=== PATIENT | female | born 1930 | race Asian ===

== ENCOUNTER 2017-02-09 16:58 | Emergency (ER) ==
[2017-02-09 17:14] VITALS: TEMP 97.6; BMI 28.3
[2017-02-09 17:46] LABS: BASOPHILS # (AUTO) 0.1 K/uL (0-0.2); BASOPHILS % (AUTO) 0.5 % (0.0-3.0); EOSINOPHILS # (AUTO) 0.2 K/ul (0.0-0.7); EOSINOPHILS % (AUTO) 1.9 % (0.0-7.0); HEMATOCRIT 36.8 % (37.0-47.0); HEMOGLOBIN 12.1 g/dl (12.0-16.0); IMMATURE GRANULOCYTE % (AUTO) 0.8 % (0.0-5.0); LYMPHOCYTES # (AUTO) 1.4 K/uL (0.60-3.4); LYMPHOCYTES % (AUTO) 11.9 (10.0-50.0); MEAN CORPUSCULAR HEMOGLOBIN 28.3 pg (27.0-31.0); MEAN CORPUSCULAR HGB CONC 32.9 (31.8-35.4); MEAN CORPUSCULAR VOLUME 86.2 fl (81.0-99.0); MONOCYTES # (AUTO) 0.8 K/uL (0.4-2.0); MONOCYTES % (AUTO) 6.7 (0-10); NEUTROPHILS # (AUTO) 9.5 K/ul (2.0-6.9); NEUTROPHILS % (AUTO) 78.2; PLATELET COUNT 276 10^3/uL (140-440); RED BLOOD COUNT 4.27 10^6/ul (4.20-5.40); WHITE BLOOD COUNT 12.11 K/ul (4.6-10.2)
[2017-02-09 18:05] LABS: ALBUMIN 3.3 g/dL (3.4-5.0); ALBUMIN/GLOBULIN RATIO 0.92; ANION GAP 15.4; BILIRUBIN,TOTAL 0.29 mg/dL (0.00-1.20); BUN/CREATININE RATIO 17.94; CALCIUM 9.1 mg/dL (8.2-10.2); CREATININE 1.17 mg/dL (0.60-1.30); POTASSIUM 4.4 mmol/L (3.5-5.10); TOTAL PROTEIN 6.9 g/dL (5.8-8.1)
[2017-02-09] MEDS ORDERED: SODIUM CHLORIDE 500 ML IV ONE (18:16)
[2017-02-09] MEDS ORDERED: MORPHINE 2 MG/ML SYRINGE IM STA (18:16)
--- NOTE | 2017-02-09 18:17 | CT ---
EXAM: CT head without contrast HISTORY: Trauma COMPARISON: CT head 09/17/2009 TECHNIQUE: Serial axial images of the brain were obtained from the skull base to the vertex without IV contrast. FINDINGS: The ventricles, cisterns and sulci demonstrate moderate generalized volume loss. The carranza- white matter junction is maintained. There is mild low attenuation in the periventricular white megan er.No midline shift or mass is identified. There is no abnormal intra or extra-axial fluid collectio n. The paranasal sinuses and mastoid air cells are clear. The osseous calvarium is intact. There is right periorbital hematoma. The orbital globes retrobulbar structures are normal. IMPRESSION: 1. Right periorbital hematoma with no intracranial abnormality or hemorrhage. 2. 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
--- NOTE | 2017-02-09 18:22 | CT ---
EXAM: CT cervical spine without contrast. HISTORY: Fall COMPARISON: CT cervical spine 09/17/2009 TECHNIQUE: Serial axial images of the cervical spine were obtained from the skull base through the l pj apices without contrast. These were viewed in multiple planes. FINDINGS: Vertebral bodies demonstrate no compression fracture or subluxation. There is narrowing a nd osteophyte formation from C4 through C7. There is scattered facet arthropathy. There is degenera tive disease of the articulation of the odontoid process with C1. There is neural foraminal narrowing bilaterally from C5-C6 through C6-C7 which is moderate and most pronounced on the left. The soft tis sues are otherwise unremarkable. IMPRESSION: 1. No acute compression fracture or subluxation of the cervical spine. 2. 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
--- NOTE | 2017-02-09 18:26 | ED.PDOC ---
General Stated Complaint: FACIAL/ CHEST INJURY Time Seen by Physician: 17:00 (FALL IN THE BATHROOM STRUCK THE CHEST , HAS NECK AND CHEST PAIN) Mode of Arrival: Stretcher Information Source: Patient, Family Exam Limitations: No limitations Referred to ED by: Other (MINIMAL DRY BLOOD AROUND THE UPPER LIP IS NOTED. PT FULLY ALERT ) Nursing and Triage Documentation Reviewed and Agree: Yes (ARRIVED IN C COLOR AND REMAINED ON IT THROUGH OUT PRESENTATION) <SERGIO ACOSTA - Last Filed: 02/09/17 18:37> <JOSÉ MANUEL LINCOLN - Last Filed: 02/09/17 21:43> ED Provider: Dr. JOSÉ MANUEL LINCOLN Chief Complaint: Facial Injury Primary Care Provider: KATHRIN MONTOYA Trauma/Injury Complaint Exam - Trauma Complaint/Exam Location of Pain or Injury: Reports: Face, Neck, Chest, Other (UPPER BACK BUT CATEGORICALY REJECTED LOWER BACK PAIN) Onset/Duration: 40 MIN Symptoms Are: Still present Timing of Treatment: Immediate Initial Severity: Moderate Current Severity: Moderate Character: Reports: Aching Aggravating: Reports: Movement Alleviating: Reports: Rest Associated Signs and Symptoms: Denies: LOC, Confusion, Memory loss, Lethargy, Vomiting, Bleeding, Bruising, Swelling, Extremity disuse, Painful respiration, Hoarseness, Dysphagia, Hemoptysis, Significant blood loss Last Meal: 4 HOURS AGO Penetrating Injury Risk Factors: Reports: None EMS Interventions: Present: C-spine immobilization. Absent: Backboard applied Related Surgical History: Reports: None Nexus Low Risk Criteria: No evidence of intoxicat., No Altered LOC, No focal neuro deficit Immobilization Removed Post Exam: No (SHE REMAINED ON C COLOR THROUGH OUT PRESENATION NO RESP ISSUES ) Glascow Coma Scale (see protocol): 15 Trauma Findings: Present: Neck tenderness, Neck spasm. Absent: [place] eyes, Hemotympanum, Nasal deformity, Dental tenderness, Dental injury, Dental malocclusion, SubQ Air, Crepitus, Airway obstructed, Trachea displaced, Labored respirations, Decreased breath sounds, Muffled heart sounds, Weak pulses, Absent pulses, Abdominal distention, Pelvic tenderness, Pelvic instability Skin Findings: Present: Normal findings Differential Diagnoses: Fracture, Sprain, Strain <SERGIO ACOSTA - Last Filed: 02/09/17 18:37> Review of Systems - Review Of Systems Constitutional: Reports: Malaise, Weakness Eyes: Reports: No symptoms Ears, Nose, Mouth, Throat: Reports: No symptoms Respiratory: Reports: No symptoms Cardiac: Reports: No symptoms GI: Reports: No symptoms : Reports: No symptoms Musculoskeletal: Reports: Joint pain, Joint swelling Skin: Reports: No symptoms Neurological: Reports: No symptoms Endocrine: Reports: No symptoms Hematologic/Lymphatic: Reports: No symptoms All Other Systems: Reviewed and Negative <JOSÉ MANUEL LINCOLN - Last Filed: 02/09/17 21:43> Past Medical History - Past Medical History Previously Healthy: Yes Endocrine: Reports: DM 2, Dyslipidemia Cardiovascular: Reports: None Respiratory: Reports: None Hematological: Reports: None Gastrointestinal: Reports: GERD Genitourinary: Reports: None Neuro/Psych: Reports: None Musculoskeletal: Reports: None Cancer: Reports: None Last Menstrual Period: unknown - Surgical History General Surgical History: Reports: None - Family History Family History: Reports: None - Social History Smoking Status: Never smoker Hx Substance Use: No Alcohol Screening: None <SERGIO ACOSTA - Last Filed: 02/09/17 18:37> Physical Exam - Physical Exam Appearance: Ill-appearing (face is swollen ) Pain Distress: Moderate Eyes: EOMI, Conjunctiva clear ENT: Ears normal, Nose normal, Oropharynx normal Respiratory: Airway patent, Breath sounds clear, Breath sounds diminished, Respirations nonlabored Cardiovascular: RRR (sternal tenderness, ecchymosis), No rub, No murmur, Tachycardia GI/: Soft, Nontender, No masses, Bowel sounds normal, No Organomegaly Musculoskeletal: Normal strength (rt wrist ecchymosis), ROM intact, No edema, No calf tenderness Skin: Warm, Dry, Normal color Neurological: Sensation intact, Motor intact, Reflexes intact, Cranial nerves intact, Alert, Oriented Psychiatric: Affect appropriate, Mood appropriate <JOSÉ MANUEL LINCOLN - Last Filed: 02/09/17 21:43> Interpretation - Radiology Interpretation Radiology Interpretation By: Radiologist <SERGIO ACOSTA - Last Filed: 02/09/17 18:37> Physician Notification - Case Discussed Physician Notified: SALAZAR Time of Notification: 19:00 (DATA PENDING) <SERGIO ACOSTA - Last Filed: 02/09/17 18:37> - Case Discussed Time of Notification: 21:42 (Dr Kellee Ramos.) <JOSÉ MANUEL LINCOLN - Last Filed: 02/09/17 21:43> Critical Care Note - Critical Care Note Total Time (mins): 0 <SERGIO ACOSTA - Last Filed: 02/09/17 18:37> Course - Course Hematology/Chemistry: 02/09/17 17:40 02/09/17 17:40 <SERGIO ACOSTA - Last Filed: 02/09/17 18:37> - Course Hematology/Chemistry: 02/09/17 17:40 02/09/17 17:40 <JOSÉ MANUEL LINCOLN - Last Filed: 02/09/17 21:43> - Course Orders, Labs, Meds: Lab Review 02/09/17 02/09/17 17:40 17:40 WBC 12.11 H RBC 4.27 Hgb 12.1 Hct 36.8 L MCV 86.2 MCH 28.3 MCHC 32.9 RDW Coeff of Leann 13.2 Plt Count 276 Immature Gran % (Auto) 0.8 Neut % (Auto) 78.2 Lymph % (Auto) 11.9 [place] % (Auto) 6.7 Eos % (Auto) 1.9 Baso % (Auto) 0.5 Immature Gran # (Auto) 0.1 Neut # 9.5 H Lymph # 1.4 [place] # 0.8 Eos # 0.2 Baso # 0.1 Sodium 137 Potassium 4.4 Chloride 102 Carbon Dioxide 24 Anion Gap 15.4 BUN 21 H Creatinine 1.17 Estimated GFR (MDRD) 44.00 BUN/Creatinine Ratio 17.94 Glucose 435 H Calcium 9.1 Total Bilirubin 0.29 AST 33 ALT 34 Alkaline Phosphatase 127 Total Protein 6.9 Albumin 3.3 L Globulin 3.6 Albumin/Globulin Ratio 0.92 Orders Category Date Time Status NPO REMINDER: IMAGING ONCE CARE 02/09/17 18:40 Completed ED IV/MEDIPORT/POWERPORT .ONCE EMERGENCY 02/09/17 18:39 Active CBC W/ AUTO DIFF Stat LAB 02/09/17 17:40 Completed COMPREHENSIVE METABOLIC PANEL Stat LAB 02/09/17 17:40 Completed 0.9 % Sodium Chloride [Saline Flush] MEDS 02/09/17 18:39 Ordered 1 syr IVF PRN PRN Morphine Sulfate [Morphine 2 mg/ml Syringe] MEDS 02/09/17 18:16 Discontinued 4 mg IM ONCE STA Sodium Chloride 0.9% [Sodium Chloride] 500 ml MEDS 02/09/17 18:40 Active IV 125 mls/hr CT CERVICAL SPINE W/O CONTRAST Stat RADS 02/09/17 17:[address] CHEST W/CONTRAST Stat RADS 02/09/17 18:[address] CHEST W/O CONTRAST Stat RADS 02/09/17 17:[address] HEAD W/O CONTRAST Stat RADS 02/09/17 17:[address] MAXILLOFACIAL W/O CONTRAST Stat RADS 02/09/17 17:[address] THORACIC SPINE W/O CONTRAST Stat RADS 02/09/17 17:34 Completed Medications Generic Name Dose Route Start Last Admin Trade Name Freq PRN Reason Stop Dose Admin Sodium Chloride 500 mls @ 125 mls/hr 02/09/17 18:40 02/09/17 18:59 Sodium Chloride IV 02/09/17 22:39 125 mls/hr .Q4H STA Administration Sodium Chloride 1 syr 02/09/17 18:39 02/09/17 18:58 Saline Flush IVF 1 syr PRN PRN Administration To flush IV Discontinued Medications Generic Name Dose Route Start Last Admin Trade Name Freq PRN Reason Stop Dose Admin Morphine Sulfate 4 mg 02/09/17 18:16 02/09/17 18:22 Morphine 2 Mg/Ml Syringe IM 02/09/17 18:17 4 mg ONCE STA Administration Vital Signs: Temp Pulse Resp BP Pulse Ox 02/09/17 18:19 98 H 194/110 H 96 02/09/17 17:00 97.6 F 95 H 20 184/98 H 98 Departure - Departure Pt referred to PMD for follow-up: Yes Disposition Discussed With: Patient, Family <SERGIO ACOSTA - Last Filed: 02/09/17 18:37> - Departure Time of Disposition: 21:42 <JOSÉ MANUEL LINCOLN - Last Filed: 02/09/17 21:43> - Departure Disposition: TSF SHORT-TRM HOSP Discharge Problem: Facial hematoma Qualifiers: Encounter type: initial encounter Qualified Code(s): S00.83XA - Contusion of other part of head, initial encounter Uncontrolled diabetes mellitus Qualifiers: Diabetes mellitus type: type 2 Fractured sternum Qualifiers: Encounter type: initial encounter Sternal location: body of sternum Condition: Good Allergies/Adverse Reactions: Allergies No Known Allergies Allergy (Unverified 02/09/17 17:15) Home Medications: Ambulatory Orders Atorvastatin Calcium [Lipitor] 40 mg PO DAILY 02/09/17 Duloxetine HCl [Cymbalta] 60 mg PO DAILY 02/09/17 Gabapentin [Neurontin] 300 mg PO BID 02/09/17 Insulin Glargine,Hum.rec.anlog [Lantus] 80 unit SUBCUT BEDTIME 02/09/17 Krill/Capitola-3/Dha/Epa/Lipids [Krill Oil 350 mg Softgel] 1 each PO DAILY Levothyroxine Sodium [Synthroid] 50 mcg PO QDAC 02/09/17 Lisinopril 20 mg PO BID 02/09/17 Pantoprazole Sodium [Protonix] 40 mg PO DAILY 02/09/17 Tramadol HCl/Acetaminophen [Tramadol-Acetaminophn 37.5-325] 1 each PO DAILY
--- NOTE | 2017-02-09 18:28 | CT ---
EXAM: CT thoracic spine without contrast HISTORY: Fall. COMPARISON: CT thoracic spine 09/17/2009 TECHNIQUE: Serial axial images of the thoracic spine were obtained without contrast. These were vie wed in multiple planes. FINDINGS: The osseous structures. Redemonstrate partial compression deformity at T4. There is posterior fusio n hardware from L1 through to T9. There is no hardware fracture or loosening. There is unchanged co mpression fracture at T11. There is scattered facet arthropathy. There is no lytic or blastic lesio n. Soft tissues are better evaluated on same day CT chest. IMPRESSION: 1. No acute compression fracture or subluxation of the thoracic spine. 2. Unchanged compression fracture at T11 with internal fixation from T9-L1. There is no hardware fr acture or loosening. 3. Unchanged mild compression deformity at T4. 4. Scattered degenerative disease throughout the thoracic spine.
--- NOTE | 2017-02-09 18:34 | CT ---
Exam: CT of the maxillofacial region without intravenous contrast. Comparison: CT of the brain performed on the same day. CT brain performed 09/17/2009. Reason for exam: Injury. FINDINGS: No displaced facial fractures are seen. The frontal, maxillary, sphenoid, and mastoid air cells are unopacified. There is minimal mucosal thickening in the ethmoid sinus. The orbital rims are intact. The zygomatic arches are unremarkable. No inflammatory changes are seen in the intraconal spaces. There is a moderate amount of soft tissue swelling seen adjacent to the right superior orbital rim likely a subgaleal hematoma. The partially imaged intracranial structures appear unremarkable save for parenchymal changes consist ent with microvascular disease and volume loss. Impression: 1. No displaced facial fractures are seen. 2. Right subgaleal hematoma. 3. Partially imaged intracranial structures demonstrate moderate to marked parenchymal change with m icrovascular disease and volume loss. Report faxed at 1132 hours on 02/09/2017
--- NOTE | 2017-02-09 18:36 | CT ---
EXAM: CT chest without contrast HISTORY: Trauma with bruising of the chest COMPARISON: Chest x-ray 05/31/2012 TECHNIQUE: Serial axial images of the chest were obtained from the lung apices to the upper abdomen without contrast. These were viewed in multiple planes. FINDINGS: The thyroid is heterogeneous. The visualized the aorta is prominent with mild atheroscler otic disease without aneurysm or stenosis. Pulmonary arteries are upper limit of normal. The heart is upper limit of normal for size without pericardial effusion. There are few scattered nonpathologi krystal enlarged lymph nodes. There is no pneumothorax or pleural effusion. Respiratory motion limits this evaluation. There is n o consolidation, nodule or mass. There is a calcified granuloma in the right upper lobe. The airway s are patent with minimal thickening. Osseous structures of the spine are better visualized on same day thoracic spine CT. The ribs demons trate no definitive fracture with evaluation limited due to motion artifact. There is subcutaneous s tranding in the fat in the anterior chest adjacent to the sternum likely representing subcutaneous he matoma/bruising there is a questionable linear lucency in the inferior sternum on sagittal image 34. This area has significant motion artifact present. Limited views of the upper abdomen demonstrate layering gallstones without evidence of inflammation. IMPRESSION: 1. Questionable nondisplaced fracture of the inferior sternum with overlying subcutaneous hematoma. 2. No acute cardiopulmonary process or consolidation. 3. Pulmonary arteries are upper limit of normal with the heart at upper limit of normal for size.
[2017-02-09] MEDS ORDERED: SODIUM CHLORIDE 500 ML IV STA (18:40)
--- NOTE | 2017-02-09 19:55 | CT ---
EXAM: CT chest with contrast HISTORY: Sternal fracture and hematoma COMPARISON: Same day CT chest TECHNIQUE: Serial axial images of the chest were obtained after 100 ml of Visipaque IV contrast was administered. These were obtained from the lung apices to the upper abdomen. FINDINGS: The thyroid is normal. Visualized vessels are unremarkable. There is no dissection, aneu rysm or stenosis. The heart is upper limit of normal in size without pericardial effusion. There is no mediastinal, hilar or axillary pathologically enlarged lymph nodes. There is no pneumothorax or pleural effusion. There is no consolidation, nodule or mass. There is m inimal patchy ground-glass throughout the lungs with no acute consolidation or mass. There is no pne umothorax. The airways are patent. There is a nondisplaced inferior sternal fracture with adjacent subcutaneous hematoma. There is min imal hematoma in the anterior inferior mediastinum adjacent to the sternal fracture. The remaining osseous structures are unremarkable. Soft tissues are unremarkable. IMPRESSION: 1. Nondisplaced inferior sternal fracture with associated adjacent hematoma. 2. No additional abnormality is identified.
[2017-02-09 21:55] VITALS: BP 146/80
== END 2017-02-09 22:10 | disposition short-term general hospital (02) ==
LOC: ED 16:58 → SCU 20:34 → UNDOADMIN 20:34 → ED 22:10
DX: S00.83XA Contusion of other part of head, initial encounter (principal); S22.22XA Fracture of body of sternum, initial encounter for closed fracture; S60.211A Contusion of right wrist, initial encounter; E11.8 Type 2 diabetes mellitus with unspecified complications; Z79.4 Long term (current) use of insulin; M54.2 Cervicalgia; R53.1 Weakness; M54.6 Pain in thoracic spine; R51 Headache; S09.93XA Unspecified injury of face, initial encounter; W19.XXXA Unspecified fall, initial encounter
CPT/HCPCS: 36415; 80053; 85025; 96360; 96361; 96372; 99285